=== PATIENT | male | born 1995 | race Caucasian/White ===

== ENCOUNTER 2019-01-14 12:04 | Emergency (ER) | payer MEDICAID ==
[2019-01-14 12:29] LABS: BASO % 0.6 % (0-6); EOS % 4.7 % (0-6); GRAN % 52.3 % (47-80); HEMATOCRIT 45.5 % (42.0-52.0); LYMPH % 28.2 % (16-45); MEAN CELL VOLUME 90.8 fl (81-97); MEAN CORPUSCULAR HEMOGLOBIN 31.9 pg (27-33); MEAN CORPUSCULAR HGB CONC 35.2 g/dl (32-36); MEAN PLATELET VOLUME 9.6 fl (7.4-10.4); MONO % 14.2 % (0-9); PLATELET COUNT 335 K/uL (130-400); RED BLOOD COUNT 5.01 M/uL (4.40-5.70); RED CELL DISTRIBUTION WIDTH 12.8 % (11.5-14.5); WHITE BLOOD COUNT W/O DIFF 8.7 K/uL (4.2-12.2)
[2019-01-14 12:45] LABS: BLOOD UREA NITROGEN 5 mg/dL (6-20); CREATININE 0.8 mg/dL (0.7-1.2); EST GLOMERULAR FILTRATION RATE > 60 mL/min
[2019-01-14 12:46] LABS: TOTAL PROTEIN 8.4 g/dL (6.6-8.7)
[2019-01-14 12:48] LABS: GLUCOSE,RANDOM 100 mg/dL (74-109)
--- NOTE | 2019-01-14 12:48 | Emergency Department Record ---
History of Present Illness - General Chief Complaint: Mental health evaluation Stated Complaint: MENTAL HEALT Time Seen by Provider: 01/14/19 12:21 Source: Patient, Family Mode of Arrival: Ambulatory Limitations: No limitations Travel/Exposure to [facility] [place] Within 21 Days of Symptoms: No - History of Present Illness Initial Comments: pt states his psychosis has been bad lately. he is hearing voices and they are telling him to harm his mother and stepfather. he has thoughts of harming himself. he has tried in the past. MD Complaint: Suicidal ideation Associated Psychiatric Symptoms: Auditory hallucinations, Delusions, Homicidal ideation, Suicidal ideation History of same: Yes Quality: Getting worse Context: New medication(s) Treatments Prior to Arrival: Placed on mental health hold If Self Harm: Admits thoughts of self harm, Has plan Details of Plan: Pt states his thoughts are that everyone is out to get him. He states he has tried hurting himself in the past and was placed in an inpatient psychiatric facility he thinks was [facility]. He states he has thoughts of hanging himself. He states he has thoughts of "taking a knife" to his mother and step father. He states he sees a Psychiatrist at [facility] in [place] by the name of Dr. Mosquera and a lady named Stefania. - [place] Coma Scale Eye Response: (4) Open spontaneously Motor Response: (6) Obeys commands Verbal Response: (5) Oriented Charanjit Total: 15 - Related Data Home Medications Medication Instructions Recorded Confirmed Last Taken Paliperidone [Invega] 6 mg PO DAILY 01/14/19 01/14/19 Unknown Allergies Allergy/AdvReac Type Severity Reaction Status Date / Time No Known Drug Allergies Allergy Verified 01/14/19 12:42 Review of Systems Reviewed: No additional complaints except as noted below Constitutional: Reports: As per HPI. Denies: Chills, Fever, Malaise, Night sweats, Weakness, Weight change Eyes: Reports: As per HPI. Denies: Eye discharge, Eye pain, Photophobia, Vision change ENT: Reports: As per HPI. Denies: Congestion, Dental pain, Ear pain, Epistaxis , Hearing loss, Throat pain Respiratory: Reports: As per HPI. Denies: Cough, Dyspnea, Hemoptysis, Stridor, Wheezes Cardiovascular: Reports: As per HPI. Denies: Arrhythmia, Chest pain, Dyspnea on exertion, Edema, Murmurs, Orthopnea, Palpitations, Paroxysmal nocturnal dyspnea, Rheumatic Fever, Syncope Endocrine: Reports: As per HPI. Denies: Fatigue, Heat or cold intolerance, Polydipsia, Polyuria Gastrointestinal: Reports: As per HPI. Denies: Abdominal pain, Constipation, Diarrhea, Hematemesis, Hematochezia, Melena, Nausea, Vomiting Genitourinary: Reports: As per HPI. Denies: Dysuria, Frequency, Hematuria, Incontinence, Retention, Testicular pain, Testicular mass, Urgency Musculoskeletal: Reports: As per HPI. Denies: Arthralgia, Back pain, Gout, Joint swelling, Myalgia, Neck pain Skin: Reports: As per HPI. Denies: Bruising, Change in color, Change in hair/ nails, Lesions, Pruritus, Rash Neurological: Reports: As per HPI. Denies: Abnormal gait, Confusion, Headache, Numbness, Paresthesias, Seizure, Tingling, Tremors, Vertigo, Weakness Psychiatric: Reports: As per HPI, Anxiety, Auditory hallucinations, Depression, Homicidal thoughts, Suicidal thoughts. Denies: Visual hallucinations Hematological/Lymphatic: Reports: As per HPI. Denies: Anemia, Blood Clots, Easy bleeding, Easy bruising, Swollen glands Past Medical History - SOCIAL HISTORY Smoking Status: Current every day smoker Alcohol Use: Occasional Drug Use: Heavy - RESPIRATORY Hx Respiratory Disorders: Yes Hx Asthma: Yes - CARDIOVASCULAR Hx Cardio Disorders: No - NEURO Hx Neuro Disorders: No - GI Hx GI Disorders: No - Hx Genitourinary Disorders: No - ENDOCRINE Hx Endocrine Disorders: No - MUSCULOSKELETAL Hx Musculoskeletal Disorders: No - PSYCH Hx Psych Problems: No - HEMATOLOGY/ONCOLOGY Hx Hematology/Oncology Disorders: No Family Medical History Any Significant Family History?: No Physical Exam - General General Appearance: Alert, Oriented x3, Cooperative, Mild distress - Head Head exam: Normal inspection - Eye Eye exam: Normal appearance, PERRL, EOMI Pupils: Normal accommodation - ENT ENT exam: Normal exam, Mucous membranes moist, Normal external ear exam, Normal orophraynx Ear exam: Normal external inspection. negative: External canal tenderness Nasal Exam: Normal inspection. negative: Discharge, Sinus tenderness Mouth exam: Normal external inspection, Tongue normal Teeth exam: Normal inspection. negative: Dental caries Throat exam: Normal inspection. negative: Tonsillar erythema, Tonsillar exudate - Neck Neck exam: Normal inspection, Full ROM. negative: Tenderness - Respiratory Respiratory exam: Normal lung sounds bilaterally. negative: Respiratory distress - Cardiovascular Cardiovascular Exam: Normal rhythm, Normal heart sounds, Tachycardia - GI/Abdominal GI/Abdominal exam: Soft, Normal bowel sounds. negative: Tenderness - Rectal Rectal exam: Deferred - exam: Deferred - Extremities Extremities exam: Normal inspection, Full ROM, Normal capillary refill. negative: Tenderness - Back Back exam: Reports: Normal inspection, Full ROM. Denies: Muscle spasm, Rash noted, Tenderness - Neurological Neurological exam: Alert, Normal gait, Oriented X3, Reflexes normal - Psychiatric Psychiatric exam: Anxious, Depressed, Homicidal ideation, Suicidal ideation - Skin Skin exam: Dry, Intact, Normal color, Warm Course Vital Signs 01/14/19 12:17 Temperature 97.9 F Pulse Rate 109 H Respiratory 18 Rate Blood Pressure 150/85 Pulse Ox 98 Medical Decision Making - Lab Data Result diagrams: 01/14/19 12:20 01/14/19 12:20 Lab Results 01/14/19 Range/Units 12:20 WBC 8.7 (4.2-12.2) K/uL RBC 5.01 (4.40-5.70) M/uL Hgb 16.0 (14.0-18.0) gm/dl Hct 45.5 (42.0-52.0) % MCV 90.8 (81-97) fl MCH 31.9 (27-33) pg MCHC 35.2 (32-36) g/dl RDW 12.8 (11.5-14.5) % Plt Count 335 (130-400) K/uL MPV 9.6 (7.4-10.4) fl Gran % 52.3 (47-80) % Lymphocytes % 28.2 (16-45) % Monocytes % 14.2 H (0-9) % Eosinophils % 4.7 (0-6) % Basophils % 0.6 (0-6) % Disposition Disposition: Transfer Clinical Impression: Homicidal ideation, Suicidal ideation, Hallucinations Disposition: Psychiatric Hospital Transfer To: [facility] Reason For Transfer: needs psych Accepting Physician: psych Time Discussed w/Accepting Physician: 15:24 Forms: Patient Portal Access Quality - Quality Measures Quality Measures: N/A - Blood Pressure Screening Does Patient Have Any of the Following: No Blood Pressure Classification: Pre-Hypertensive BP Reading Systolic Measurement: 150 Diastolic Measurement: 85 Screening for High Blood Pressure: < Pre-Hypertensive BP, F/U Documented > [ [id number]] Pre-Hypertensive Follow-up Interventions: Follow-up with rescreen every year.
[2019-01-14 12:49] LABS: URINE APPEARANCE CLOUDY; URINE BILIRUBIN NEGATIVE (NEGATIVE); URINE BLOOD NEGATIVE (NEGATIVE); URINE COLOR YELLOW; URINE GLUCOSE (UA) NEGATIVE (NEGATIVE); URINE KETONE NEGATIVE (NEGATIVE); URINE LEUKOCYTE ESTERASE NEGATIVE (NEGATIVE); URINE NITRITE NEGATIVE (NEGATIVE); URINE PROTEIN NEGATIVE (NEGATIVE); URINE UROBILINOGEN 0.2 E.U./dL (0.20 - 1.00)
[2019-01-14 12:50] LABS: ALT/SGPT 70 U/L (<41)
[2019-01-14 12:51] LABS: ALB/GLOB RATIO 1.5 (1.1-1.8); ALKALINE PHOSPHATASE 84 U/L (55-149); AST/SGOT 20 U/L (10.0-50.0)
[2019-01-14 12:56] LABS: AMPHETAMINE SCREEN URINE DETECTED; BARBITURATE SCREEN URINE DETECTED; BENZODIAZEPINE SCREEN URINE NOT DETECTED; COCAINE SCREEN URINE NOT DETECTED; METHADONE SCREEN URINE NOT DETECTED; METHAMPHETAMINE SCREEN NOT DETECTED; OPIATE SCREEN URINE NOT DETECTED; OXYCODONE SCREEN URINE NOT DETECTED; PHENCYCLIDINE SCREEN URINE NOT DETECTED; PROPOXYPHENE SCREEN URINE NOT DETECTED; THC SCREEN URINE NOT DETECTED; TRICYCLIC ANTIDEPRESSANT SCRN NOT DETECTED
== END 2019-01-14 16:08 ==
LOC: ER 12:04
DX: R45.850 Homicidal ideations (principal); R45.851 Suicidal ideations; R44.0 Auditory hallucinations; R44.1 Visual hallucinations; F17.210 Nicotine dependence, cigarettes, uncomplicated
CPT/HCPCS: 99285 ×2; 85025; 80053; 81003; 84443; 80305; G0480; 80320